=== PATIENT | male | born 1940 | race Caucasian/White ===

== ENCOUNTER 2019-08-13 13:20 | Inpatient (IN) ==
--- NOTE | 2019-08-13 14:00 | Diag Imaging Result Doc PS360 ---
EXAM: CT HEAD W/O CONTRAST - 08/13/2019 HISTORY: stroke like symptoms TECHNIQUE: CT head without contrast COMPARISON: None. FINDINGS: There is some generalized atrophic changes. There are mild chronic appearing microvascular ischemic changes. There is no indication of recent infarct, although acute infarcts may not be visible. There is no evidence of intracranial hemorrhage, mass effect, or midline shift. There is no evidence of skull fracture. There is mild paranasal sinus disease noted. IMPRESSION: No visible acute intracranial abnormality. No hemorrhage or mass effect. This exam was performed using automated exposure control, adjustment of mA or kV according to patient size, and/or use of iterative reconstruction technique. Electronically signed by Sanya Carr 08/13/2019 1:58 PM
[2019-08-13 14:58] LABS: BASO# 0.04 X1000 (0.0-0.2); BASO% 0.4 % (0.0-0.8); EOS# 0.52 X1000 (0.0-0.7); HEMATOCRIT 41.6 % (42.0-52.0); HEMOGLOBIN 13.3 g/dL (14.0-18.0); IMM GRAN# 0.03 X1000 (0.0-0.04); IMM GRAN% 0.3 % (0.0-0.5); LYMPH# 2.58 X1000 (1.2-3.4); LYMPH% 24.7 % (20.5-51.1); MCH 29.2 PG (27-31); MCV 91.2 FL (81-99); MONO# 0.94 X1000 (0.11-0.59); MPV 10.2 FL (7.4-10.4); NEUT# 6.33 X1000 (1.4-6.5); NEUT% 60.6 % (42.2-75.2); PLT 204 X1000 (130-400); RBC 4.56 XMIL (4.7-6.1); RDW 13.8 % (11.5-14.5); WBC 10.44 X1000 (4.8-10.8)
[2019-08-13 15:01] LABS: INR 1.35
[2019-08-13 15:02] LABS: PTT 33.4 Seconds (22.3-41.8)
--- NOTE | 2019-08-13 15:10 | Diag Imaging Result Doc PS360 ---
EXAM: CHEST-1 VIEW - 08/13/2019 HISTORY: altered mental status TECHNIQUE: Portable chest one view COMPARISON: 12/13/2016 FINDINGS: There is cardiomegaly. There are sternal wires from previous surgery and transvenous cardiac pacemaker again seen. There is apparent vascular congestion and basilar interstitial edema. There is no dense consolidation, substantial pleural effusion, or pneumothorax identified. IMPRESSION: Cardiomegaly with apparent mild congestive heart failure. Electronically signed by Sanya Carr 08/13/2019 3:08 PM
[2019-08-13 15:26] LABS: ALB/GLOB RATIO 1.5; ALBUMIN 4.3 g/dL (3.5-5.0); CALCIUM 9.6 mg/dL (8.8-10.2); CREATININE 1.2 mg/dL (0.7-1.2); POTASSIUM 4.7 mmol/L (3.5-5.1); TOTAL BILIRUBIN 0.7 mg/dL (0.20-1.00); TOTAL PROTEIN 7.1 g/dL (6.3-8.3)
--- NOTE | 2019-08-13 15:55 | PROVIDER DOCUMENTATION ---
This chart was entered by Farhana Rodriguez Scribe, acting as scribe for Bernard Vines MD. HPI-Neurological Disorder - General Chief Complaint: STROKE ALERT Stated Complaint: stroke like symptoms Time Seen by Provider: 08/13/19 13:55 Source: family Allergies/Adverse Reactions: Patient Allergies Allergy/AdvReac Type Severity Reaction Status Date / Time No Known Allergies Allergy Verified 08/14/14 18:53 Home Medications: Home Medication List Medication Instructions Recorded Confirmed Last Taken Type Fexofenadine [Nat] 180 mg PO DAILY PRN 08/25/12 08/14/14 08/13/14 09:00 History Furosemide [Lasix] 20 mg PO QAM 08/25/12 08/14/14 08/14/14 09:00 History Isosorbide Mononitrate E.r. [Imdur] 30 mg PO QHS 08/25/12 08/14/14 08/13/14 22: 00 History Losartan/Hydrochlorothiazide 1 each PO QHS 08/25/12 08/14/14 08/13/14 22:00 History [Hyzaar 100/25 Tablet] Metformin [Glucophage] 500 mg PO QHS 08/25/12 08/14/14 08/13/14 22:00 History Sertraline HCl [Zoloft] 50 mg PO DAILY 08/25/12 08/14/14 08/14/14 09:00 History Simvastatin [Zocor] 40 mg PO QHS 08/25/12 08/14/14 08/13/14 22:00 History Aspirin 81 mg PO QHS 08/14/14 08/14/14 08/13/14 22:00 History Nitroglycerin Sl [Nitroglycerin] 1 - 3 tab SL PRN PRN 08/14/14 08/14/14 08/14/14 17:30 History Ranolazine E.r. [Ranexa] 500 mg PO BID 08/14/14 08/14/14 08/14/14 09:00 History Rivaroxaban [Xarelto] 20 mg PO QHS 08/14/14 08/14/14 08/13/14 22:00 History Rivastigmine [Exelon 9.5MG/24Hrs] 1 patch TOP QAM 08/14/14 08/14/1414 09:00 History Carvedilol [Coreg] 25 mg PO BID #0 tablet 08/16/14 Unknown Rx Levofloxacin [Levaquin] 750 mg PO DAILY #7 tablet 08/16/14 Unknown Rx Spironolactone [Aldactone] 25 mg PO DAILY #0 tablet 08/16/14 Unknown Rx Prednisone 20 mg PO DAILY #12 tablet 09/23/15 Unknown Rx - History of Present Illness-Neuro Nature of Presenting Problem: 79 yowm presents w/family to er w/cc poss stroke. daughter sts that pt has hx of dementia and at 1005 pt told daughter that someone else was picking him up for roman catholic and for her to leave. daughter left to run errands and came back to find pt asleep. upon waking pt, he could not walk and almost fell. when pt was trying to eat lunch he was moving fork slowly to eat. 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 pt has hx of tia 15 yrs ago, afib, 3x [place], 15 stents and has pacemaker. pt rx baby aspirin and xorelto. mother and daughter are at bedside. Severity: reports: moderate Onset/Duration: reports: this morning Timing: reports: improving Context: reports: none Character of Altered Mental Status: reports: confused Any recent trauma/injury?: reports: none Cognitive Baseline: alert, oriented x3 Gait Baseline: walks without assistance Associated Symptoms: reports: decreased ability to walk or stand, trouble walking, weakness Similar Symptoms Previously?: Yes Recently seen or treated by another doctor?: No Review of Systems - Adult - REVIEW OF SYSTEMS - ADULT ROS:: ROS per family Constitutional: reports: no symptoms reported. denies: chills, fever, fatique Eyes: reports: no symptoms reported. denies: decreased vision, blurred vision, double vision Ears, Nose, Mouth & Throat: reports: no symptoms reported Cardiovascular: reports: no symptoms reported Respiratory: reports: no symptoms reported Gastrointestinal: reports: no symptoms reported Genitourinary: reports: no symptoms reported Musculoskeletal: reports: see HPI, muscle weakness. denies: back pain, muscle aches, neck pain Integumentary: reports: no symptoms reported Neurological: reports: see HPI, loss of balance (trouble walking, eating and using utinsils). denies: ataxia, dizziness/vertigo, syncope, tremors Psychiatric: reports: no symptoms reported Endocrine: reports: no symptoms reported Hematologic/Lymphatic: reports: no symptoms reported Allergic/Immunologic: reports: no symptoms reported All Other Systems: Reviewed and Negative Past History - Adult - PAST MEDICAL HISTORY-ADULT Review of Records: reports: Old Records Reviewed, Nursing Assessment Review, Medications Reviewed, Social history reviewed & non-contributory. Major Childhood Illnesses: reports: denies history Cardiovascular: reports: HTN, [place] (x3), pacemaker Respiratory: reports: denies history Gastrointestinal: reports: denies history Obstetrical/Gynecological: reports: denies history Genitourinary: reports: denies history Musculoskeletal: reports: denies history Neurological: reports: dementia, TIA Endocrine/Immune: reports: Diabetes Other Conditions: reports: denies history - PRIOR SURGERIES/PROCEDURES Surgical/Procedure History: reports: cardiac stent (x10), pacemaker, orthopedic (extremity) (knee), back/neck (neck), other (carpal tunnel; triple bypass) - IMMUNIZATION STATUS Childhood Immunizations: See Nurse Assessment Flu Vaccine: See Nurse Assessment - FAMILY HISTORY Family History: reviewed, not pertinent - SOCIAL HISTORY Smoking: other (former smoker) Substance Use: none/never Physical Exam- Neurological - Physical Exam-Neuro Initial Vital Signs Reviewed: Yes General Appearance: appears well, alert, no apparent distress, other (pt condition has greatly improved among arrival). negative: lethargic, slow to respond, obtunded Eye Exam: bilateral eye: normal inspection, PERRL, EOMI HENMT: normocephalic/atraumatic, moist mucous membranes, normal ENT inspection Head Injury: no evidence of injury Neck: non-tender, full range of motion, supple, normal inspection Respiratory: chest non-tender, lungs clear, normal breath sounds Cardiovascular: normal peripheral pulses, regular rate, rhythm, other (pacemaker). 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 negative: abnormal speech, facial asymmetry, facial droop, facial paresthesias, facial weakness, gaze palsy Motor/Sensory: no motor deficit, no sensory deficit, no pronator drift. 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 negative: aphasia, facial droop, focal weakness, motor weakness, sensory deficit Integumentary: normal color, normal turgor, warm/dry Psych/Mental Status: normal mood/affect, normal thought content, normal thought process, oriented x 3 - Glascow Coma Scale Best Eye Response: (4) open spontaneously Best Verbal Response: (5) oriented Best Motor Response: (6) obeys commands Total Glascow Score: 15 Progress - PLAN OF CARE/RESULTS Progress/Plan/Lab Results: Vital Signs - 8 hr 08/13/19 13:58 08/13/19 14:00 08/13/19 14:30 Temperature 97.9 F Pulse Rate 80 81 Respiratory Rate 18 20 Blood Pressure 167/78 O2 Sat by Pulse Oximetry 95 95 08/13/19 14:45 08/13/19 15:01 Temperature Pulse Rate 70 72 Respiratory Rate 17 15 Blood Pressure 158/88 122/78 O2 Sat by Pulse Oximetry 92 L 96 Laboratory Results - last 24 hr 08/13/19 08/13/19 08/13/19 13:56 14:44 14:44 WBC 10.44 RBC 4.56 L Hgb 13.3 L Hct 41.6 L MCV 91.2 MCH 29.2 MCHC 32.0 L RDW Std Deviation 13.8 Plt Count 204 MPV 10.2 Immature Gran % (Auto) 0.3 Neut % (Auto) 60.6 Lymph % (Auto) 24.7 Bulloch % (Auto) 9.0 Eos % (Auto) 5.0 Baso % (Auto) 0.4 Immature Gran # (Auto) 0.03 Neut # (Auto) 6.33 Lymph # (Auto) 2.58 Bulloch # (Auto) 0.94 H Eos # (Auto) 0.52 Baso # (Auto) 0.04 PT INR PTT (Actin FS) Sodium 136 Potassium 4.7 Chloride 100 Carbon Dioxide 23 L Anion Gap 13 BUN 19 Creatinine 1.2 Estimated GFR/1.73 m2 58 BUN/Creatinine Ratio 16 Glucose 202 H POC Glucose 183 H Calculated Osmolality 280 Calcium 9.6 Total Bilirubin 0.70 AST 17 ALT 12 Alkaline Phosphatase 92 Troponin T Total Protein 7.1 Albumin 4.3 Globulin 2.8 Albumin/Globulin Ratio 1.5 08/13/19 08/13/19 14:44 14:44 WBC RBC Hgb Hct MCV MCH MCHC RDW Std Deviation Plt Count MPV Immature Gran % (Auto) Neut % (Auto) Lymph % (Auto) Bulloch % (Auto) Eos % (Auto) Baso % (Auto) Immature Gran # (Auto) Neut # (Auto) Lymph # (Auto) Bulloch # (Auto) Eos # (Auto) Baso # (Auto) PT 17.0 H INR 1.35 PTT (Actin FS) 33.4 Sodium Potassium Chloride Carbon Dioxide Anion Gap BUN Creatinine Estimated GFR/1.73 m2 BUN/Creatinine Ratio Glucose POC Glucose Calculated Osmolality Calcium Total Bilirubin AST ALT Alkaline Phosphatase Troponin T 0.012 Total Protein Albumin Globulin Albumin/Globulin Ratio Orders Category Date Time Status CHEST-1 VIEW [RAD] Stat Exams 08/13/19 14:[address] HEAD W/O CONTRAST [CT] Stat Exams 08/13/19 13:25 Completed CBC WITH DIFF [HEME] Stat Lab 08/13/19 14:44 Completed COMPREHENSIVE METABOLIC PANEL [CHEM] Stat Lab 08/13/19 14:44 Completed PT [PROTIME WITH INR] [COAG] Stat Lab 08/13/19 14:44 Completed PTT [COAG] Stat Lab 08/13/19 14:44 Completed TROPONIN T Stat Lab 08/13/19 14:[address] Duncan for TIA/stroke rule out. Initial head CT non-contrast negative. Patient back to baseline currently. He is currently on Aspirin and Xarelto with LKN 11:30 out of the window for tPA. He has known dementia. Has pacemaker that precludes MRI but his creatinine is 1.2 with GFR 58 so he will be able to receive IV contrast for a CTA study. He took additional aspirin this morning. Patient and family aware and agree with plan of care. No prior CVAs but he does have a remote history of TIA. Result Diagrams: 08/13/19 14:44 08/13/19 14:44 - EKG 1 Time of EKG reading by physician:: 14:30 EKG Read and Signed by:: Bernard Vines EKG Interpretation (*Must complete 3 of following elements*): Abnormal Rate: 82 Rhythm: Ventricular paced rhythm w/occ PVCs [place]: normal QRS: normal ST Wave: normal - XRAY 1 XRAY Study: Chest Impression: Abnormal, See EMR Report ( EXAM: CHEST-1 VIEW - 08/13/2019 HISTORY: altered mental status TECHNIQUE: Portable chest one view COMPARISON: 12/13/2016 FINDINGS: There is cardiomegaly. There are sternal wires from previous surgery and transvenous cardiac pacemaker again seen. There is apparent vascular congestion and basilar interstitial edema. There is no dense consolidation, substantial pleural effusion, or pneumothorax identified. IMPRESSION: Cardiomegaly with apparent mild congestive heart failure. Electronically signed by Jiujiuweikang 08/13/2019 3:08 PM) - CT/MRI 1 CT Study: Head Impression: Normal, See EMR Report (EXAM: CT HEAD W/O CONTRAST - 08/13/2019 HISTORY: stroke like symptoms TECHNIQUE: CT head without contrast COMPARISON: None. FINDINGS: There is some generalized atrophic changes. There are mild chronic appearing microvascular ischemic changes. There is no indication of recent infarct, although acute infarcts may not be visible. There is no evidence of intracranial hemorrhage, mass effect, or midline shift. There is no evidence of skull fracture. There is mild paranasal sinus disease noted. IMPRESSION: No visible acute intracranial abnormality. No hemorrhage or mass effect. This exam was performed using automated exposure control, adjustment of mA or kV according to patient size, and/or use of iterative reconstruction technique. Electronically signed by Veracyte 08/13/2019 1:58 PM) Comparison with other Films: no prior study - CONSULTS/PCP/HOSPITALIST Notification #1 *Consult/PCP/Hospitalist*: Dr. Duncan Time Discussed: 15:38 Consult Disposition: Admit Departure - Departure Date of Disposition Decision: 08/13/19 Time of Disposition Decision: 15:54 DIAGNOSIS: Acute focal neurological deficit, onset within 3-24 hours Disposition: ADMITTED INPATIENT 09 Certified Medical Emergency: Urgent Condition: Good Referrals and Follow-Ups: Farhana Mathur MD [Primary Care Provider] - - Critical Care Note This patient required my direct & personal management of CC.: No Attestation - Physician/ CAMACHO Attestation Patient care was provided by Advanced Practice Provider:: No The physician spent face to face time with patient:: Yes Advanced Practice Provider documentation review:: Supervising physician onsite and consulted in the evaluation and care of this patient. The physician did have a face to face encounter with the patient. - NIH Stroke Scale NIH Type: Initial Evaluation Level of Consciousness: 0-Alert LOC Questions (ask month and age): 1-Answers One Correctly LOC Commands (ask to open & close eyes;make a fist, let go): 0-Obeys Both Correctly Best Gaze (horizontal eye movement): 0-Normal Visual (use finger movement, counting or visual threat): 0-No Visual Loss Facial Palsy (show teeth or raise eyebrows & close eyes tght: 0-Symmetrical Movement Motor Function-left arm: 0-Normal Motor Function-right arm: 0-Normal Motor Function-left le-Normal Motor Function-right le-Normal Limb Ataxia(vuzhcv-vkjt-rkbxqg, or heel to elliott): 0-No Ataxia Sensory(pin prick to face,arms,trunk,legs-compare side/side): 0-No Ataxia Best Language(name item/read sentence.Ex-Down to Earth): 0-No Aphasia Dysarthria(Pt read words or say words Ex.Mama,Tip-Top,Thanks: 0-Normal Articulation Extinction and Inattention: 0-Normal NIH Total Score: 1 This chart was documented by the indicated scribe, (Farhana Rodriguez, [place]) and accurately reflects the services I performed and decisions made by me, Bernard Vines MD, as attested by the provider's signature.
--- NOTE | 2019-08-13 17:15 | HISTORY AND PHYSICAL ---
PRIMARY CARE PROVIDER: Dr. Farhana Mathur. COMMUNITY HEALTH ADVISOR: Dr. Win Neely. PAST MEDICAL HISTORY: Congestive heart failure, systolic, pulmonary edema, hypertension, hyperlipidemia, coronary artery disease status post CABG and multiple stents, dementia with stage 1 Alzheimer's, pacemaker implantation, TIA in January 2002. HISTORY OF PRESENT ILLNESS: Per 's report, she got up to go to anabaptist this morning and he was still sleeping. She went to wake him up around noon to come to dinner. She states he was not quite his self. He was not able to get up. The daughter helped get him up to a rolling office chair. They wheeled him to the dinner table. He was not able to use his right hand to feed himself. He was speaking, but was having difficulty getting out his words, as well as using both of his legs with weakness. She did ask him to lift up both his arms, smile, as well as stick out his tongue, which he could do all of those things. However, he was just still out of it. They called EMS who brought him to the ED. Upon arrival back to the ED, he was back to his norm. Head CT did not show any stroke or hemorrhage. He was given 4 baby aspirin by his at home. He is on Xarelto and baby aspirin. He is not a candidate for MRI secondary to his pacemaker. We will admit him in observation status. Consult Neurologic. Follow up with an echo and carotid Dopplers. He is a DNR level 1. PAST MEDICAL HISTORY: 1. [place] in 1997, 1998, 2004. 2. Early stages of Alzheimer's. 3. Systolic congestive heart failure. 4. Hyperlipidemia. 5. Hypertension. 6. TIA in 2001. PAST SURGICAL HISTORY: 1. Neck surgery 1982. 2. Two knee surgeries, one in 1980 and 1994. 3. Stent placement in 1997, 1998, 2004, 2006, 2009. 4. Triple bypass July 2008 at [facility]. 5. Pacemaker implantation in 2003 and again in 2010. 6. Carpal tunnel surgery in 2008. 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 Lives at home with his . No tobacco, alcohol, or illicit drug use. Diagnosed with the early stages of Alzheimer's dementia this year. MEDICATIONS: Home medications are currently being compiled. REVIEW OF SYSTEMS: Twelve-point review of systems completely negative except for those mentioned in HPI. PHYSICAL EXAMINATION: VITAL SIGNS: Temperature is 97.9 degrees, heart rate 72, respirations 16, blood pressure 122/78, O2 is 96% on room air. GENERAL: Mr. Lozano is a pleasant, 79-year-old male who is sitting up on the bed, in no acute distress. HEENT: Atraumatic, normocephalic. PERRL. NECK: Supple. Trachea midline. CARDIOVASCULAR: S1, S2 appreciated. No murmurs, gallops, or rubs noted. RESPIRATORY: Lung sounds clear bilaterally. GI: Soft, nontender, nondistended. Positive bowel sounds 4 quadrants. EXTREMITIES: Lower extremities, maybe some trace edema to lower extremities. NEUROLOGIC: Patient is alert and oriented x3. He knows his name, date of , and where he is. He can tell you who his is. He does not know the current year or current president. He followed commands. He moved all extremities appropriately. Supervisor Incising strength and lower extremity strength is 5/5. Smile was symmetrical. Tongue was midline. DIAGNOSTIC DATA: Head CT showed no acute intracranial abnormality. No hemorrhage or mass effect. LABORATORY DATA: White count 10, hemoglobin and hematocrit 13 and 41, platelet count is 204,000. Sodium 136, potassium 4.7, BUN 19, creatinine 1.2, blood glucose is 202. ASSESSMENT AND PLAN: 1. Transient ischemic attack versus cerebrovascular accident. The patient is now back to his normal mentation. There is no deficits noted. He is not a candidate for MRI secondary to his permanent pacemaker. We will do an echocardiogram as well as carotid Dopplers in the a.m. and consult Cardiology. Continue him on aspirin and his home Xarelto when verified. 2. Hypertension. Will allow for permissive hypertension overnight. 3. Hyperlipidemia. We will continue with statin. 4. Coronary artery disease, status post several stents and triple bypass. 5. New onset Alzheimer's dementia. Aware. 6. Permanent pacemaker. 7. Code status. DNR level 1. We will consult Palliative Care to see about obtaining a portable DNR as well as goals of care. 8. Further recommendations to follow physician evaluation, laboratory and diagnostic data. Dictated by SUBHASH Avitia for Thai Madrigal MD Addendum: Patient seen and examined by myself. Agree with SUBHASH note. It reflects my assessment and plan. Patient is being admitted to hospital for TIA vs stroke. Will check echocardiogram and carotid dopplers. Will allow permissive hypertension if patient has stroke and monitor patient closely. cc: MD Lyn Bauer III, MD Sarah E. Styers, MD Peter Johnson, MD MTDD
[2019-08-13] MEDS ORDERED: TYLENOL PO PRN (18:23)
[2019-08-13] MEDS ORDERED: ZOFRAN IV PRN (18:23)
[2019-08-13] MEDS: HUMALOG SUBQ SCH (22:18)
[2019-08-14 07:36] LABS: BASO# 0.06 X1000 (0.0-0.2); BASO% 0.6 % (0.0-0.8); EOS# 0.53 X1000 (0.0-0.7); EOS% 5.2 % (0.0-10.0); HEMATOCRIT 41.6 % (42.0-52.0); HEMOGLOBIN 13.3 g/dL (14.0-18.0); IMM GRAN# 0.04 X1000 (0.0-0.04); IMM GRAN% 0.4 % (0.0-0.5); LYMPH# 2.66 X1000 (1.2-3.4); LYMPH% 26.1 % (20.5-51.1); MCH 29.4 PG (27-31); MCV 91.8 FL (81-99); MONO# 1.06 X1000 (0.11-0.59); MONO% 10.4 % (1.7-9.3); MPV 10.2 FL (7.4-10.4); NEUT# 5.86 X1000 (1.4-6.5); NEUT% 57.3 % (42.2-75.2); PLT 209 X1000 (130-400); RBC 4.53 XMIL (4.7-6.1); RDW 13.8 % (11.5-14.5); WBC 10.21 X1000 (4.8-10.8)
[2019-08-14 07:49] LABS: ALB/GLOB RATIO 1.3; ALBUMIN 4.1 g/dL (3.5-5.0); CALCIUM 9.1 mg/dL (8.8-10.2); CREATININE 1.2 mg/dL (0.7-1.2); POTASSIUM 4.3 mmol/L (3.5-5.1); TOTAL BILIRUBIN 0.66 mg/dL (0.20-1.00); TOTAL PROTEIN 7.2 g/dL (6.3-8.3)
--- NOTE | 2019-08-14 08:02 | EKG Report ---
Test Performed on : 08/13/2019 2:04:51 PM Test Reason : ED. NO EKG ORDER FOR MUSE Blood Pressure : / mmHG Vent. Rate : 082 BPM Atrial Rate : 070 BPM P-R Int : 000 ms QRS Dur : 164 ms QT Int : 430 ms P-R-T Axes : 000 124 103 degrees QTc Int : 502 ms Ventricular-paced rhythm with occasional premature ventricular complexes. Abnormal ECG When compared with ECG of 13-DEC-2016 13:24, premature ventricular complexes. are now present Vent. rate has increased BY 2 BPM Unconfirmed Result
[2019-08-14] MEDS ORDERED: ASPIRIN PO SCH (09:00)
--- NOTE | 2019-08-14 12:41 | ECHO REPORT ---
ORDER DATE: 08/14/2019 INDICATION: TIA versus CVA. FINDINGS: 1. The right atrium is mildly enlarged at 4.3 cm. Linear echodensity consistent with device leads is noted in the right heart chambers. 2. Mild tricuspid regurgitation. 3. Normal RV size and systolic function. 4. Trace pulmonic insufficiency. 5. Severe left atrial enlargement with a dimension of 6 cm and a volume index of 50. 6. Mild to moderate mitral regurgitation. No evidence of mitral stenosis. 7. Dilated left ventricle with an end-diastolic dimension of 6.2 cm. Normal wall thicknesses with a ventricular septal wall thickness of 1.1. Reduced LV systolic function. The estimated EF is on the order of 30 to 35 percent with some evidence of inferior wall hypokinesis. 8. Aortic valve opens well. It is trileaflet. No evidence of stenosis or insufficiency. 9. Aorta appears normal in visualized segments. 10. No pericardial effusion seen. cc: Win Neely MD
--- NOTE | 2019-08-14 13:13 | PROGRESS NOTE ---
DATE: 08/14/2019 SUBJECTIVE: Patient reports feeling fine. According to the family, the patient is back to his baseline. OBJECTIVE: Vital Signs: Temperature 98.5 degrees, heart rate 80, respiratory rate 16, blood pressure 135/63, O2 saturation 99% on room air. General: This is an 79-year-old male, lying in bed, in no acute distress. Cardiovascular: S1, S2 heard. No murmurs, gallops, or rubs. Regular rate and rhythm. Respiratory: Clear bilaterally to auscultation. No work of breathing or using accessory muscles. Abdomen: Soft. Nontender to palpation. Bowel sounds present. No organomegaly. Extremities: No clubbing, cyanosis, or edema. Peripheral pulses present in both legs. Neurological: Patient alert and oriented x3. Moves 4 extremities. LABORATORY DATA: Reviewed. ASSESSMENT AND PLAN: 1. Transient ischemic attack versus stroke. Clinically, this patient is back to his baseline. Neurology consultation has been requested since admission. We will see what they have to say. We have ordered an echocardiogram and a carotid Doppler, will see what those exams show. The patient because of pacemaker, cannot have an MRI. We will continue to monitor. 2. Hypertension. Blood pressure is under control. We will continue with the same management. 3. Hyperlipidemia. We will continue with the statin. 4. Paroxysmal atrial fibrillation. Patient is on Xarelto. We will continue with the same management. 5. Coronary artery disease. Patient is not having any chest pain. Patient has several stents placed on triple bypass. We will continue to monitor. 6. Disposition. If all work up returns normal, the patient will be discharged tomorrow. cc: Thai Madrigal MD
[2019-08-14] MEDS: HUMALOG SUBQ SCH ×2 (17:21→21:00)
[2019-08-14] MEDS ORDERED: COREG PO SCH (21:00)
[2019-08-14] MEDS ORDERED: ZOCOR PO SCH (21:00)
[2019-08-14] MEDS ORDERED: XARELTO PO SCH (21:00)
[2019-08-14] MEDS ORDERED: IMDUR PO SCH (21:00)
--- NOTE | 2019-08-14 21:29 | CONSULTATION ---
DATE OF CONSULTATION: 08/14/2019 REASON FOR CONSULT: Stroke. HISTORY OF PRESENT ILLNESS: This is an 79-year-old, right-handed male with history of dementia, coronary disease, hypertension, hyperlipidemia, and pacemaker. He was admitted yesterday with symptoms concerning for stroke. History is from the . Apparently, the patient was awakened from sleeping yesterday and was unable to get up. The and daughter helped the patient into a rolling office chair and rolled him to the table. He was having a difficult time with his fork that was in his right hand, and seemed to not know how to get the food to stay on his fork. His speech was not particularly slurred, although he was slow responding to questions. says his responses were appropriate, albeit slow. She says she did the stroke checklist, including having him smile, raise his arms, and stick out his tongue, and did not notice any asymmetry with these things. EMS was summoned who had to lift him from the chair and manipulate his legs to get him to the stretcher. By the time he arrived in the emergency department, and when his arrived, says he was back to normal. Of note, his did give him 4 baby aspirin at home. Head CT on arrival did not show acute findings. He is unable to go for MRI due to pacemaker. He had an event about 7 years ago that was evaluated at [facility]. They were on a fishing trip and summoned him to help her reel in a fish. When he got to her, she realized he was out of it. He would not speak, he became lethargic, and had his tongue hanging out of his mouth. That resolved, I believe, in under 1 hour's time. About 10 years ago, he had an event of sudden onset isolated slurred speech. This also resolved within several minutes. This last event was suspected to be TIA whereas the fishing trip event was suspected to be possible seizure. He has not had any overt seizure activity witnessed by . PAST MEDICAL HISTORY: 1. Coronary disease with CABG and several stents placed over the years. 2. Hypertension. 3. Hyperlipidemia. 4. Possible TIA. 5. Possible seizure, see above. 6. Heart failure. 7. Dementia. 8. Pacemaker. 9. Carpal tunnel release. SOCIAL HISTORY: He is and lives with his . No tobacco, alcohol, or illicits. 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 ALLERGIES: No known drug allergies listed. MEDICATIONS AT HOME: Reviewed and include: 1. Aspirin 81 mg. 2. Xarelto. 3. Zocor. REVIEW OF SYSTEMS: Balance of 12 conducted and is otherwise negative except that detailed in HPI. PHYSICAL EXAMINATION: Afebrile, blood pressure 167/78 on admission, current 135/63, pulse 80s, respirations 16, 99% on room air. Mr. Lozano is sitting up on the couch. He is awake, alert, reasonably attentive. He does not make good eye contact unless spoken directly to. He is able to state his name. He knows his . He does not know where he is. He does not know the year or the month. He does not know the president. This is all typical for him. He can follow simple commands, but not complex commands. There is a lack of spontaneity. No language dysfunction on brief bedside testing. No dysarthria. Pupils are equal, round, and reactive to bright light. Gaze is conjugate. Ocular movements are full. Visual palma: He blinks to threat without obvious deficit. He can hear. Face symmetric with equal activation. Facial sensation reported intact. Tongue is midline. Palate elevates symmetrically. Shoulder shrug is full. No drift. Tone is equal in the limbs. No adventitious movements. Power is preserved in the arms and legs as tested and symmetric. He reports equal sensation to pinprick in the limbs. [id number] is intact. Rapid alternating movements intact. He will not perform [id number]. Reflexes 1+ at the ankles and wrists bilaterally. No clonus. He is able to stand unassisted and walk across the room and back without major difficulty. There is good stride and arm swing. Normal turn. Slightly slow and cautious. DIAGNOSTICS: Labs reviewed in the chart. Normal white count. Sodium of 139. BUN and creatinine normal. Blood sugars mid 100s to 200s. Triglycerides 153, cholesterol 147, LDL 97, HDL 41. There is no urinalysis or toxicology. Head CT, noncontrast: No acute findings. Echocardiogram did not mention visualization of any thrombus. ASSESSMENT AND PLAN: Transient neurologic symptoms, lasting about 1 hour duration or less. Uncertain etiology. He has risk factors for transient ischemic attack, although that etiology is not definite. Another possibility would be seizure and postictal behavior. Still, other possibilities are not excluded. I believe full stroke workup is under way and that can be reviewed. I would continue his aspirin and Xarelto as well as his statin. Aggressive blood sugar control and an A1c would be appropriate. I am going to order a routine electroencephalogram. Thank you for the consultation. cc: Nazia Palacios MD MTDD
[2019-08-15] MEDS: HUMALOG SUBQ SCH (06:30)
[2019-08-15] MEDS ORDERED: ALDACTONE PO SCH (09:00)
[2019-08-15] MEDS ORDERED: RANEXA PO SCH (09:00)
[2019-08-15] MEDS ORDERED: NORVASC PO SCH (09:00)
[2019-08-15] MEDS ORDERED: LASIX PO SCH (09:00)
[2019-08-15] MEDS ORDERED: SINGULAIR PO SCH (09:00)
[2019-08-15] MEDS ORDERED: ZOLOFT PO SCH (09:00)
[2019-08-15] MEDS ORDERED: FERROUS SULFATE PO SCH (09:00)
--- NOTE | 2019-08-15 14:01 | EEG REPORT ---
DATE: 08/14/2019 REFERRING: Nazia Palacios MD INBOUND SALES ADVISOR: Lynette Marinelli. BACKGROUND INFORMATION/TECHNIQUE: This is a digitally recorded portable routine EEG with video. HISTORY: A 79-year-old male, with dementia and pacemaker, who was admitted with symptoms initially concerning for stroke. Apparently upon being awoken he was unable to get up, slow to respond to questions, had a difficult time using his fork. This all resolved in under an hour. EEG is ordered to detect evidence of seizures. There is a past history of episode where he became lethargic, with tongue hanging out of his mouth also resolved within an hour. Another instance 10 years ago when he had an episode of slurred speech. MEDICATIONS: Medications include Zoloft. EEG FINDINGS: A posterior dominant alpha rhythm is not seen. The background consists of theta slowing, with intermixed faster frequencies. No definite persistent focal slowing. No epileptiform discharges. No seizures. Hyperventilation is not performed. Photic stimulation does not alter the record. The patient is briefly drowsy but stage II sleep is not seen. EKG demonstrates a paced rhythm. IMPRESSION AND CLINICAL CORRELATION: Abnormal routine EEG due to mild generalized slowing indicative of a mild nonspecific encephalopathy. Generalized slowing is a nonspecific finding that can be seen in processes that diffusely affect the cerebrum, including toxic, metabolic, pharmacologic, post hypoxic and infectious etiologies amongst others. No epileptiform discharges or seizures seen on the current study. This does not rule out an underlying seizure disorder. Clinical correlation is recommended. cc: Nazia Palacios MD
[2019-08-15 14:17] VITALS: BP 100/52
--- NOTE | 2019-08-15 17:37 | PROGRESS NOTE ---
DATE: 08/15/2019 SUBJECTIVE: Mr. Lozano did okay overnight, although at some point he got up and unplugged everything from the room. He is not always finishing his thought process while in the hospital. OBJECTIVE: He is afebrile. Blood pressure 100/52, pulse 70s to 80s. Mr. Lozano is asleep on the sofa, appears to be resting comfortably. I did not wake him. I had a lengthy discussion with his , who is eager for discharge. DIAGNOSTIC DATA: Routine EEG was personally reviewed showing mild generalized slowing, but no epileptiform discharges or seizures. LABORATORY DATA: Labs were reviewed in the chart. ASSESSMENT AND PLAN: Remains transient neurologic symptoms of uncertain etiology. Workup thus far has been unrevealing. He was already baseline yesterday. I would continue with his risk- factor modification. Continue with aspirin and Xarelto. I do not believe we have enough information at this time that would warrant initiation of typical antiepileptic medication. cc: Nazia Palacios MD
--- NOTE | 2019-08-16 05:33 | DISCHARGE SUMMARY ---
ADMISSION DATE: 08/13/2019 DISCHARGE DATE: 08/15/2019 DISCHARGE DISPOSITION: Home with family. DISCHARGE CONDITION: Hemodynamically stable. He does not have any neurologic symptoms. He is alert and oriented x3. He does not have any speech abnormality or weakness. His is at bedside. DISCHARGE DIAGNOSES: 1. Transient neurological symptoms of unclear etiology. 2. Hypertensive urgency. OTHER DIAGNOSES: 1. History of essential hypertension. 2. History of hyperlipidemia. 3. History of coronary artery disease status post several stents and triple bypass between 1997 and 2009. His bypass was in 2007. 4. History of a pacemaker implantation in 2003 and 2010. 5. History of chronic systolic congestive heart failure with ejection fraction of 35 to 40 percent. 6. History of transient ischemic attack in 2001. 7. History of further staging of his Alzheimer's dementia. 8. History of paroxysmal atrial fibrillation. DISCHARGE MEDICATIONS: 1. Aspirin 81 mg at nighttime. 2. Isosorbide mononitrate extended release 30 mg at nighttime. 3. Xarelto 15 mg at nighttime. 4. Simvastatin 20 mg at nighttime. 5. Carvedilol 12.5 mg b.i.d. 6. Ferrous sulfate 325 mg daily. 7. Furosemide 20 mg in the morning time. 8. Montelukast 40 mg daily. 9. Nitroglycerin 0.4 mg sublingual as needed for chest pain. 10. Amlodipine 2.5 mg daily. 11. Ranolazine 1000 mg daily. 12. Sertraline 50 mg daily. 13. Spironolactone 25 mg daily. VITALS: At the time of discharge, temperature 98 degrees, pulse 82, respiratory rate 18, blood pressure 100/52, and saturating 95% on room air. PHYSICAL EXAMINATION: Not in acute distress. Oral cavity is moist. Lungs: Air entry bilaterally equal. No wheeze, rhonchi, or crackles. Heart: Normal. No murmur or gallop. Abdomen: Soft and nontender. Extremities: Mild lower extremity edema. Neurologic: He is alert and oriented x3. No facial droop. Tongue appears midline. Speech is normal. Power is 5/5 bilateral upper and lower extremities. No problems with coordination. LABORATORY: During hospital admission and discharge, WBC 95369 hemoglobin 13.3, and platelet count 209,000. BUN of 18, creatinine of 1.2, and blood glucose of 154. His lipid profile had LDL of 97. No microbiological data. IMAGING: During hospital admission, head CT did not have any acute visible intracranial pathology, hemorrhage or mass effect. Chest x-ray had cardiomegaly with mild congestive heart failure. Echocardiogram has ejection fraction of 30 to 35% with some evidence of inferior wall hypokinesia, but the patient was chest pain free. He did not have any shortness of breath. EKG on admission had ventricularly paced rhythm with occasional premature ventricular complexes. EEG on 08/14 had mild generalized slowing indicative of mild nonspecific encephalopathy without any epileptiform discharges. HOSPITAL COURSE SUMMARY: Mr. Lozano is an 79-year-old man who initially presented on 08/13/2019 evening with chief complaint of transient neurological deficit. Apparently, he did not wake up to go to the pentecostalism that day. When his woke him up for dinner, he was not quite himself. He was not able to get up by himself, and his family helped him up to an office chair and to the dinner table. He was not able to use his right hand to feed himself. He was finding it difficult to speak out some of his words, and so they decided to go to the emergency room. He was given 4 baby aspirin by his at home. He was also on Xarelto and baby aspirin. He was admitted for further management. He got his CAT scan of the head which did not have any acute pathology. Echocardiogram had ejection fraction of 30%. He does have a known history of coronary artery disease, though he did not have any chest pain or shortness of breath. His ultrasound carotid final report was pending, but the preliminary report did not have stenosis. By the time he was evaluated in the emergency room, his symptoms had resolved. Neurology was consulted, and EEG was performed which did not have any epileptiform discharge. He was already symptom-free, so it was unclear what could have caused his transient neurological symptoms. He also has known history of early Alzheimer's dementia. He was advised to continue taking his medications regularly, and have follow up with outpatient provider as well as Dr. Neely. He was also advised to have a discussion with Dr. Neely about increasing his cholesterol medication as tolerated. TIME SPENT: At the time of discharge, more than 30 minutes were spent. All of his questions were satisfactorily answered. His 's questions were also satisfactorily answered. I advised them to follow up with his regular physician. cc: Aditya Lepe MD MTDD
--- NOTE | 2019-08-18 15:24 | Carotid Study ---
DATE: 08/14/2019 PROCEDURE: Bilateral duplex and color flow imaging the carotid arteries performed using the GE Vivid E9 ultrasound system with a 9 L-D transducer. REFERRING PROVIDER: Chavez. 79-year-old male. SENIOR SITE MANAGER: Yoana Goldberg RVT. INDICATIONS: CVA-stroke. FINDINGS: The velocities in cm/sec of both carotid systems were reviewed. The right ICA/CCA ratio is 1.43 corresponding 2% stenosis of 0 to 39 percent. The left ICA/CCA ratio 1.29 corresponding 2% stenosis of 0 to 39 percent. INTERPRETATION: Mild atherosclerotic disease of the distal common and internal carotid arteries bilaterally without evidence of a hemodynamically significant lesion in either carotid system. cc: Betsy Arzola MD
== END 2019-08-15 18:32 | disposition home or self-care (01) | DRG 92 ==
LOC: SUPCPDRO → ED 13:20 → 3N 16:40 → SUATTDRO 16:40
PROVIDERS: ATTEND Internal Medicine